=== PATIENT | male | born 1975 | race Caucasian/White ===

== ENCOUNTER → 2019-08-31 | Outpatient (CLI) | payer OTHER ==
--- NOTE | 2019-08-31 09:52 | US ---
EXAMINATION TYPE: US scrotum with doppler. TECHNIQUE: Grayscale and color Doppler Duplex imaging performed of the scrotum. DATE OF EXAM: 08/31/2019 COMPARISON: NONE CLINICAL HISTORY: 43-year-old male with N50 Pain and Swelling. Findings: EXAM MEASUREMENTS: TESTICLES: Right Testicle: 4.6 x 2.2 x 2.9 cm Left Testicle: 4.4 x 2.6 x3.3 cm EPIDIDYMIS HEAD: Right Epididymis: 0.8 cm Left Epididymis: 0.5 cm Doppler performed to assess for testicular vascularity; good bilateral color flow and waveforms are s een. There is no evidence of testicular torsion. There is a heterogeneous thickening with hyper in the right hemiscrotum. Presence of hydroceles: Small bilateral hydroceles. Presence of varicoceles: no IMPRESSION: 1. No evidence for testicular torsion. 2. Heterogeneous thickening with hyperemia in the right hemiscrotum. Clinical correlation can be made to exclude epididymitis. 3. Small bilateral hydroceles.
== END | disposition home or self-care (01) ==
LOC: RADUSWWP 08:56
PROVIDERS: ATTEND Internal Medicine
DX: N43.3 Hydrocele, unspecified (principal)
CPT/HCPCS: 76870; 93975

== ENCOUNTER → 2020-05-17 | Outpatient (CLI) | payer OTHER ==
--- NOTE | 2020-05-19 13:06 | US ---
EXAMINATION TYPE: US scrotum with doppler. TECHNIQUE: Grayscale and color Doppler Duplex imaging performed of the scrotum. DATE OF EXAM: 05/17/2020 COMPARISON: NONE CLINICAL HISTORY: 44-year-old male N50 Testicular pain. Swelling on the right FINDINGS: EXAM MEASUREMENTS: TESTICLES: Right Testicle: 4.2 x 3.6 x 2.1 cm Left Testicle: 4.4 x 2.7 x 2.1 cm Testicles show normal homogeneous appearance. No hyperemia. EPIDIDYMIS HEAD: Right Epididymis: 1.4 cm Left Epididymis: 1.2 cm Doppler performed to assess for testicular vascularity; good bilateral color flow and waveforms are s een. There is no evidence of testicular torsion. Presence of hydroceles: mild to moderate bilaterally Presence of varicoceles: no IMPRESSION: 1. No sonographic evidence for testicular torsion or epididymoorchitis. 2. [id number] bilateral hydroceles.
== END | disposition home or self-care (01) ==
LOC: RADUSWWP 15:46
PROVIDERS: ATTEND Internal Medicine
DX: N43.3 Hydrocele, unspecified (principal)
CPT/HCPCS: 76870; 93975

== ENCOUNTER 2020-10-14 10:49 | Emergency (ER) | payer OTHER ==
[2020-10-14 11:03] VITALS: RESP 18
[2020-10-14] MEDS ORDERED: ACETAMINOPHEN TAB 500 MG TAB PO STA (11:14)
--- NOTE | 2020-10-14 12:03 | XR ---
EXAMINATION TYPE: XR chest 2V DATE OF EXAM: 10/14/2020 COMPARISON: Chest x-ray April 08, 2013 HISTORY: Fever. TECHNIQUE: Frontal and lateral views of the chest are obtained. FINDINGS: There is some chronic parenchymal change with new peripheral left basilar opacity. Right l randi remains clear. No pleural effusion or pneumothorax seen bilaterally. The cardiac silhouette size remains within normal limits. Stable rim calcified 3.2 cm structure left upper quadrant possible aneu rysm or splenic lesion is benign given stability. The osseous structures are intact. IMPRESSION: Patchy left basilar peripheral acute infiltrate. Correlate clinically for possible covid 19 infection
[2020-10-14] MEDS ORDERED: cefTRIAXone IN SWFI 1,000 MG/10 ML SYRINGE IVP STA (13:22)
--- NOTE | 2020-10-14 13:23 | ED ---
Fever HPI - General Chief Complaint: Fever Stated Complaint: fever 10 days Time Seen by Provider: 10/14/20 11:03 Source: patient, RN notes reviewed Mode of arrival: ambulatory Limitations: no limitations - History of Present Illness Initial Comments: This a 44-year-old male presents emergency department chief complaint of fever 10 days. Patient states she's had persistent fever on alleviated. Patient did contact his PCP was placed on azithromycin. Patient states that has not helped and was instructed to go to the emergency department. Patient states that his has coated but is improving. Patient's symptoms are progressively worsening. He has mild shortness of breath no chest pain denies any neck pain or neck stiffness no severe headache denies any GI symptoms. - Related Data Home Medications Medication Instructions Recorded Confirmed Acetaminophen Tab [Tylenol Tab] 1,000 mg PO Q6HR PRN 10/14/20 10/14/20 Buprenorphine HCl/Naloxone HCl 1 film SL BID 10/14/20 10/14/20 [Suboxone 8 mg-2 mg Sl Film] Butalb/APAP/Caff 50-325-40Mg 1 tab PO DAILY PRN 10/14/20 10/14/20 [Fioricet 50-325-40] Dextroamphetamine/Amphetamine 30 - 45 mg PO DAILY PRN 10/14/20 10/14/20 [Adderall] Ibuprofen [Motrin Ib] 400 mg PO Q8H PRN 10/14/20 10/14/20 Previous Rx's Medication Instructions Recorded Levofloxacin [Levaquin] 500 mg PO DAILY #7 tab 10/14/20 Allergies Allergy/AdvReac Type Severity Reaction Status Date / Time No Known Allergies Allergy Verified 10/14/20 11:19 Review of Systems ROS Statement: Those systems with pertinent positive or pertinent negative responses have been documented in the HPI. ROS Other: All systems not noted in ROS Statement are negative. Past Medical History Past Medical History: No Reported History History of Any Multi-Drug Resistant Organisms: None Reported Past Surgical History: Appendectomy Past Psychological History: Bipolar Smoking Status: Former smoker Past Alcohol Use History: None Reported Past Drug Use History: None Reported General Exam Limitations: no limitations General appearance: alert, in no apparent distress Head exam: Present: atraumatic, normocephalic, normal inspection Eye exam: Present: normal appearance, PERRL, EOMI. Absent: scleral icterus, conjunctival injection, periorbital swelling ENT exam: Present: normal exam, normal oropharynx, mucous membranes moist Neck exam: Present: normal inspection, full ROM. Absent: tenderness, mening ismus, lymphadenopathy Respiratory exam: Present: normal lung sounds bilaterally. Absent: respiratory distress, wheezes, rales, rhonchi, stridor Cardiovascular Exam: Present: normal rhythm, tachycardia, normal heart sounds. Absent: systolic murmur, diastolic murmur, rubs, gallop, clicks GI/Abdominal exam: Present: soft, normal bowel sounds. Absent: distended, tenderness, guarding, rebound, rigid Course Vital Signs 10/14/20 10/14/20 10/14/20 11:00 11:32 13:11 Temperature 100.3 F H 100.1 F H 98.9 F Pulse Rate 120 H 103 H 97 Respiratory 18 18 18 Rate Blood Pressure 136/84 118/90 O2 Sat by Pulse 97 95 98 Oximetry Medical Decision Making - Medical Decision Making Chest x-ray shows evidence of pneumonia. Patient is covid 19 negative though there is high suspicion that he does have Covid. Patient we discharged supination. - Lab Data Result diagrams: 10/14/20 13:51 Lab Results 10/14/20 10/14/20 Range/Units 11:30 13:51 WBC 4.4 (3.8-10.6) k/uL RBC 4.91 (4.30-5.90) m/uL Hgb 14.2 (13.0-17.5) gm/dL Hct 41.4 (39.0-53.0) % MCV 84.2 (80.0-100.0) fL MCH 29.0 (25.0-35.0) pg MCHC 34.4 (31.0-37.0) g/dL RDW 11.7 (11.5-15.5) % Plt Count 178 (150-450) k/uL MPV 6.6 Neutrophils % 68 % Lymphocytes % 25 % Monocytes % 4 % Eosinophils % 1 % Basophils % 2 % Neutrophils # 3.0 (1.3-7.7) k/uL Lymphocytes # 1.1 (1.0-4.8) k/uL Monocytes # 0.2 (0-1.0) k/uL Eosinophils # 0.0 (0-0.7) k/uL Basophils # 0.1 (0-0.2) k/uL Coronavirus (PCR) Not Detected (Not Detectd) Disposition Clinical Impression: Pneumonia Disposition: HOME SELF-CARE Condition: Stable Instructions (If sedation given, give patient instructions): Fever in Adults (ED) Additional Instructions: Please return to the Emergency Department if symptoms worsen or any other concerns. Prescriptions: Levofloxacin [Levaquin] 500 mg PO DAILY #7 tab Is patient prescribed a controlled substance at d/c from ED?: No Referrals: Flip Guevara MD [Primary Care Provider] - 1-2 days Time of Disposition: 14:19
[2020-10-14] MEDS ORDERED: KETOROLAC 15 MG/ML 1 ML VIAL IVP STA (13:55)
[2020-10-14 14:04] LABS: Basophils # (A) 0.1 k/uL (0-0.2); Basophils % (A) 2 %; Eosinophils % (A) 1 %; HCT 41.4 % (39.0-53.0); HGB 14.2 gm/dL (13.0-17.5); Lymphocytes # (A) 1.1 k/uL (1.0-4.8); Lymphocytes % (A) 25 %; MCHC 34.4 g/dL (31.0-37.0); MCV 84.2 fL (80.0-100.0); Mean Platelet Volume 6.6; Monocytes # (A) 0.2 k/uL (0-1.0); Monocytes % (A) 4 %; Neutrophils % (A) 68 %; Platelet Count 178 k/uL (150-450); RBC 4.91 m/uL (4.30-5.90); RDW 11.7 % (11.5-15.5); WBC 4.4 k/uL (3.8-10.6)
[2020-10-14 14:23] LABS: ALT 31 U/L (4-49); AST 37 U/L (17-59); African American GFR (CKD) >90 (>60 ml/min/1.73 sqM); Albumin 4.2 g/dL (3.5-5.0); Alkaline Phosphatase 59 U/L (38-126); Anion Gap 7 mmol/L; Blood Urea Nitrogen 17 mg/dL (9-20); Calcium 8.6 mg/dL (8.4-10.2); Carbon Dioxide 27 mmol/L (22-30); Chloride 102 mmol/L (98-107); Glucose 94 mg/dL (74-99); Non-African American GFR(CKD) >90 (>60 ml/min/1.73 sqM); Potassium 4.7 mmol/L (3.5-5.1); Sodium 136 mmol/L (137-145); Total Bilirubin 0.6 mg/dL (0.2-1.3); Total Protein 7.2 g/dL (6.3-8.2)
[2020-10-14 14:40] VITALS: BP 130/97; PULSE 82; TEMP 98.8
[2020-10-14 14:41] LABS: C Reactive Protein 143.7 mg/L (<10.0)
== END 2020-10-14 14:45 | disposition home or self-care (01) ==
LOC: EC 10:49
DX: J18.9 Pneumonia, unspecified organism (principal); R00.0 Tachycardia, unspecified; F31.9 Bipolar disorder, unspecified; Z79.899 Other long term (current) drug therapy; Z90.49 Acquired absence of other specified parts of digestive tract; Z87.891 Personal history of nicotine dependence; Z20.828 Contact with and (suspected) exposure to other viral communicable diseases
CPT/HCPCS: 36415; 80053; 83605; 85025; 86140; 87040; 87635; 71046; 99283; 96374; 96375; J0696; J1885